=== PATIENT | male | born 1975 | race American Indian/Alaskan Native ===

== ENCOUNTER 2020-10-14 11:31 | Emergency (ER) | payer SELFPAY ==
--- NOTE | 2020-10-14 12:17 | Event Note ---
ED Screening Note Date of service: 10/14/20 Time: 12:16 ED Screening Note: Patient complains of intermittent low back pain x1 year now radiating to right side of chest Tenderness to palpation of the right chest wall Denies shortness of breath Denies past medical history Denies injury or recent heavy lifting This initial assessment/diagnostic orders/clinical plan/treatment(s) is/are subject to change based on patients health status, clinical progression and re- assessment by fellow clinical providers in the ED. Further treatment and workup at subsequent clinical providers discretion. Patient/guardian urged not to elope from the ED as their condition may be serious if not clinically assessed and managed. Initial orders include: Labs EKG Chest x-ray
[2020-10-14 13:09] LABS: Basophils % (Auto) 0.6 % (0.0-1.8); Eosinophils # (Auto) 0.1 K/mm3 (0.0-0.4); Eosinophils % (Auto) 1.7 % (0.0-4.3); Hemoglobin 14.8 gm/dl (11.8-15.2); Lymphocytes # (Auto) 1.5 K/mm3 (1.2-5.4); Lymphocytes % (Auto) 24.6 % (13.4-35.0); Mean Corpuscular HGB Conc 34 % (32-34); Mean Corpuscular Volume 97 fl (84-94); Monocytes # (Auto) 0.8 K/mm3 (0.0-0.8); Platelet Count 166 K/mm3 (140-440); Red Blood Count 4.54 M/mm3 (3.65-5.03); Red Cell Distribution Width 12.8 % (13.2-15.2)
--- NOTE | 2020-10-14 13:27 | XRay Report ---
CHEST 2 VIEWS INDICATION / CLINICAL INFORMATION: right sided chest pain. COMPARISON: None available. FINDINGS: SUPPORT DEVICES: None. HEART / MEDIASTINUM: No significant abnormality. LUNGS / PLEURA: No significant pulmonary or pleural abnormality. No pneumothorax. ADDITIONAL FINDINGS: No significant additional findings. IMPRESSION: 1. No acute findings. Lumbar spine 3 views INDICATION: Back pain FINDINGS: Alignment appears normal. Facet degenerative change L4-5 and L5-S1. No compression fracture . Sacrum and sacroiliac joints appear normal. Signer Name: Daquan Iyer MD Signed: 10/14/2020 1:23 PM Workstation Name: [id number]
[2020-10-14 13:31] LABS: Alanine Aminotransferase 20 units/L (7-56); Albumin 4.3 g/dL (3.9-5); BUN/Creatinine Ratio 17; Blood Urea Nitrogen 17 mg/dL (9-20); Calcium 9.2 mg/dL (8.4-10.2); Hemolysis Index 6
--- NOTE | 2020-10-14 13:38 | Emergency Department Report ---
ED Back Pain/Injury HPI - General Chief Complaint: Back Pain/Injury Stated Complaint: BACK PAIN X 1 YEAR Time Seen by Provider: 10/14/20 12:16 Source: patient Limitations: No Limitations - History of Present Illness Initial Comments: Is a very pleasant 44-year-old male who presents to the emergency department chief complaint of right-sided lower back pain that has been bothering him over the past year. He reports a year ago he was sitting up to a standing position from a seated position when he started to feel the intense pain in his lower back. He states he has had this on and off and usually does get some relief with Biofreeze and Advil however he started to have some pain radiating into the right side of his abdomen and up into the right side of his chest that has been ongoing for the past few days. He denies any new injuries. He denies any shortness of breath, fever, chills, night sweats, headache, dizziness, blurry vision, nausea, vomiting, diarrhea, hematemesis, melena, hematochezia, weakness or any other associated symptoms. He denies any known past medical history, current medication use or known allergies to medications. Denies any previous surgeries. MD Complaint: back pain - Related Data Previous Rx's Medication Instructions Recorded Last Taken Type Naproxen [Naprosyn TAB] 500 mg PO BID #30 tablet 10/14/20 Unknown Rx methOCARBAMOL [Robaxin TAB] 500 mg PO Q6H #30 tablet 10/14/20 Unknown Rx methylPREDNISolone [Medrol 4MG 4 mg PO ONCE #1 tab.ds.pk 10/14/20 Unknown Rx DOSEPAK (21 tabs)] Allergies Allergy/AdvReac Type Severity Reaction Status Date / Time No Known Allergies Allergy Unverified 10/14/20 12:18 ED Review of Systems ROS: Stated complaint: BACK PAIN X 1 YEAR Other details as noted in HPI Comment: All other systems reviewed and negative Constitutional: denies: chills, fever Eyes: denies: eye pain, eye discharge, vision change ENT: denies: ear pain, throat pain Respiratory: denies: cough, shortness of breath, wheezing Cardiovascular: chest pain. denies: palpitations Endocrine: no symptoms reported Gastrointestinal: denies: abdominal pain, nausea, diarrhea Genitourinary: denies: urgency, dysuria Musculoskeletal: back pain. denies: joint swelling, arthralgia Skin: denies: rash, lesions Neurological: denies: headache, weakness, paresthesias Psychiatric: denies: anxiety, depression Hematological/Lymphatic: denies: easy bleeding, easy bruising ED Past Medical Hx - Past Medical History Previous Medical History?: No - Surgical History Past Surgical History?: No - Social History Smoking Status: Never Smoker - Medications Home Medications: Home Medications Medication Instructions Recorded Confirmed Last Taken Type Naproxen [Naprosyn TAB] 500 mg PO BID #30 tablet 10/14/20 Unknown Rx methOCARBAMOL [Robaxin TAB] 500 mg PO Q6H #30 tablet 10/14/20 Unknown Rx methylPREDNISolone [Medrol 4MG 4 mg PO ONCE #1 tab.ds.pk 10/14/20 Unknown Rx DOSEPAK (21 tabs)] ED Physical Exam - General Limitations: No Limitations General appearance: alert, in no apparent distress - Head Head exam: Present: atraumatic, normocephalic - Eye Eye exam: Present: normal appearance, PERRL, EOMI Pupils: Present: normal accommodation - ENT ENT exam: Present: normal exam, normal orophraynx, mucous membranes moist - Neck Neck exam: Present: normal inspection, full ROM. Absent: tenderness, meningismus - Respiratory Respiratory exam: Present: normal lung sounds bilaterally, chest wall tenderness (Tenderness over the right side the chest wall, no deformity, normal lung sounds bilaterally normal equal radial pulses bilaterally). Absent: respiratory distress, wheezes, rales, rhonchi, stridor - Cardiovascular Cardiovascular Exam: Present: regular rate, normal rhythm, normal heart sounds. Absent: systolic murmur, diastolic murmur, rubs, gallop - GI/Abdominal GI/Abdominal exam: Present: soft, normal bowel sounds, other (Negative [place]oy's point tenderness, no rebound or guarding, no CVA tenderness bilaterally). Absent: distended, tenderness, guarding, rebound, rigid, mass, bruit, pulsatile mass - Rectal Rectal exam: Present: deferred - Extremities Exam Extremities exam: Present: normal inspection, full ROM, normal capillary refill. Absent: tenderness, calf tenderness (No posterior calf tenderness bilaterally, negative Homans' sign bilaterally.) - Back Exam Back exam: Present: normal inspection, full ROM, tenderness (Tenderness over the right SI joint. Pain with Casey's test. Negative straight leg raise bilaterally.). Absent: CVA tenderness (R), CVA tenderness (L) - Neurological Exam Neurological exam: Present: alert, oriented X3, CN II-XII intact, normal gait, reflexes normal (Normal deep tendon reflexes the bilateral Achilles and patellar 2+ bilaterally) - Psychiatric Psychiatric exam: Present: normal affect, normal mood - Skin Skin exam: Present: warm, dry, intact, normal color. Absent: rash ED Course Vital Signs 10/14/20 12:16 Temperature 98.7 F Pulse Rate 91 H Respiratory 20 Rate Blood Pressure 190/91 O2 Sat by Pulse 97 Oximetry ED Medical Decision Making - Lab Data Result diagrams: 10/14/20 12:56 10/14/20 12:56 Lab Results 10/14/20 10/14/20 10/14/20 Range/Units 12:56 12:56 15:14 WBC 6.3 (4.5-11.0) K/mm3 RBC 4.54 (3.65-5.03) M/mm3 Hgb 14.8 (11.8-15.2) gm/dl Hct 44.0 (35.5-45.6) % MCV 97 H (84-94) fl MCH 33 H (28-32) pg MCHC 34 (32-34) % RDW 12.8 L (13.2-15.2) % Plt Count 166 (140-440) K/mm3 Lymph % (Auto) 24.6 (13.4-35.0) % [place] % (Auto) 12.0 H (0.0-7.3) % Eos % (Auto) 1.7 (0.0-4.3) % Baso % (Auto) 0.6 (0.0-1.8) % Lymph # (Auto) 1.5 (1.2-5.4) K/mm3 [place] # (Auto) 0.8 (0.0-0.8) K/mm3 Eos # (Auto) 0.1 (0.0-0.4) K/mm3 Baso # (Auto) 0.0 (0.0-0.1) K/mm3 Seg Neutrophils % 61.1 (40.0-70.0) % Seg Neutrophils # 3.9 (1.8-7.7) K/mm3 Sodium 138 (137-145) mmol/L Potassium 4.4 (3.6-5.0) mmol/L Chloride 102.0 (98-107) mmol/L Carbon Dioxide 29 (22-30) mmol/L Anion Gap 11 mmol/L BUN 17 (9-20) mg/dL Creatinine 1.0 (0.8-1.3) mg/dL Estimated GFR > 60 ml/min BUN/Creatinine Ratio 17 % Glucose 99 (75-100) mg/dL Calcium 9.2 (8.4-10.2) mg/dL Total Bilirubin 0.40 (0.1-1.2) mg/dL AST 19 (5-40) units/L ALT 20 (7-56) units/L Alkaline Phosphatase 113 (35-129) units/L Troponin T < 0.010 < 0.010 (0.00-0.029) ng/mL Total Protein 7.4 (6.3-8.2) g/dL Albumin 4.3 (3.9-5) g/dL Albumin/Globulin Ratio 1.4 % - EKG Data EKG shows normal: sinus rhythm Rate: normal - EKG Data When compared to previous EKG there are: no significant change Interpretation: no acute changes, other (Normal sinus rhythm with a ventricular rate of 81, no acute ST or T wave abnormalities, no STEMI, normal axis, normal intervals T wave inversion in V5 V6) - Radiology Data Radiology results: report reviewed, image reviewed Ordering Physician: MAUDE JULES Date of Service: 10/14/20 Procedure(s): XR spine lumbosacral 2-3V Accession Number(s): [id number] cc: MAUDE JULES Fluoro Time In Minutes: CHEST 2 VIEWS INDICATION / CLINICAL INFORMATION: right sided chest pain. COMPARISON: None available. FINDINGS: SUPPORT DEVICES: None. HEART / MEDIASTINUM: No significant abnormality. LUNGS / PLEURA: No significant pulmonary or pleural abnormality. No pneumothorax. ADDITIONAL FINDINGS: No significant additional findings. IMPRESSION: 1. No acute findings. Lumbar spine 3 views INDICATION: Back pain FINDINGS: Alignment appears normal. Facet degenerative change L4-5 and L5-S1. No compression fracture. Sacrum and sacroiliac joints appear normal. Signer Name: Daquan Trevizo MD Signed: 10/14/2020 1:23 PM Workstation Name: [id number] Transcribed By: ROSANA Dictated By: ARTIE TREVIZO MD Electronically Authenticated By: ARTIE TREVIZO MD Signed Date/Time: 10/14/20 1323 Ordering Physician: MAUDE JULES Date of Service: 10/14/20 Procedure(s): XR chest routine 2V Accession Number(s): [id number] cc: MAUDE JULES Fluoro Time In Minutes: CHEST 2 VIEWS INDICATION / CLINICAL INFORMATION: right sided chest pain. COMPARISON: None available. FINDINGS: SUPPORT DEVICES: None. HEART / MEDIASTINUM: No significant abnormality. LUNGS / PLEURA: No significant pulmonary or pleural abnormality. No pneu mothorax. ADDITIONAL FINDINGS: No significant additional findings. IMPRESSION: 1. No acute findings. Lumbar spine 3 views INDICATION: Back pain FINDINGS: Alignment appears normal. Facet degenerative change L4-5 and L5-S1. No compression fracture. Sacrum and sacroiliac joints appear normal. Signer Name: Daquan Trevizo MD Signed: 10/14/2020 1:23 PM Workstation Name: [email or web address] Transcribed By: ROSANA Dictated By: ARTIE TREVIZO MD Electronically Authenticated By: ARTIE TREVIZO MD Signed Date/Time: 10/14/20 1323 - Medical Decision Making Patient nontoxic in no acute distress. Vitals are stable other than he is slightly hypertensive. Patient had no pulsatile masses and no radiating pain from the abdomen to the back. Patient had normal equal femoral and radial pul ses bilaterally with no tearing or ripping pain to the chest from the back making acute aortic dissection unlikely. He had no saddle anesthesia, urinary or bowel incontinence, and normal deep tendon reflex bilaterally making cauda equina syndrome or conus medullaris syndrome unlikely. He had no fever or IV drug use making spinal epidural abscess unlikely. He had no significant injury making spinal epidural hematoma unlikely. We will treat the patient with short course of steroids, anti-inflammatories and muscle relaxers and recommended outpatient orthopedic follow-up return the [facility] department any change or worsening symptoms. Verbalized understand the diagnosis, treatment plan and fo llow-up instructions and all his questions were answered. - Differential Diagnosis SI joint dysfunction, HNP, strain Critical care attestation.: If time is entered above; I have spent that time in minutes in the direct care of this critically ill patient, excluding procedure time. ED Disposition Clinical Impression: Sacroiliac inflammation, Nonspecific chest pain Disposition: TO HOME OR SELFCARE Is pt being admited?: No Condition: Stable Instructions: Nonspecific Chest Pain, Adult Prescriptions: methylPREDNISolone [Medrol 4MG DOSEPAK (21 tabs)] 4 mg PO ONCE #1 tab.ds.pk Naproxen [Naprosyn TAB] 500 mg PO BID #30 tablet methOCARBAMOL [Robaxin TAB] 500 mg PO Q6H #30 tablet Referrals: [facility]EM[facility] [Primary Care Provider] - 3-5 Days [facility] [place] MD [Staff Physician] - 3-5 Days Time of Disposition: 16:11
[2020-10-14] MEDS ORDERED: KETOROLAC 30 MG/1 ML INJ IM ONE (13:52)
[2020-10-14 16:37] VITALS: BP 147/77
--- NOTE | 2020-10-15 11:19 | Electrocardiograph Report ---
[facility] Test Date: 2020-10-14 Test Time: 12:27:11 Pat Name: VICENTE COOPER Department: Room: Gender: M Collections Specialist: MARYLOU : 1975 Requested By: MAUDE JULES Order Number: [id number] Reading MD: Pradip Loco Measurements Intervals [place] Rate: 81 P: 69 ND: 159 QRS: 14 QRSD: 84 T: 105 QT: 366 QTc: 427 Interpretive Statements Sinus rhythm Probable left atrial enlargement No previous ECG available for comparison Electronically Signed On 10-15-2020 8:19:38 PDT by Pradip Loco
== END 2020-10-14 16:38 | disposition home or self-care (01) ==
LOC: EDBD → ED 11:31
DX: M46.1 Sacroiliitis, not elsewhere classified (principal); R07.89 Other chest pain; Z79.899 Other long term (current) drug therapy
CPT/HCPCS: 36415; 71046; 72100; 80053; 84484; 85025; 93005; 96372; 99284; J1885